=== PATIENT | male | born 1965 | race Caucasian/White ===

== ENCOUNTER 2017-08-21 18:45 | Emergency (ER) | payer BC, OTHER ==
[2017-08-21] MEDS ORDERED: Sodium Chloride 0.9% 10 ML Syringe FLUSH PRN ×2 (18:46→18:48)
[2017-08-21] MEDS ORDERED: Sodium Chloride 0.9% 2.5 ML Syringe FLUSH PRN ×2 (18:46→18:48)
[2017-08-21] MEDS ORDERED: fentaNYL 100 MCG/2 ML SDV IVPUSH ONE (18:50)
[2017-08-21 19:05] VITALS: BP 169/115
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
== END 2017-08-21 19:11 ==
LOC: MW.ED 18:45
DX: S20.211A Contusion of right front wall of thorax, initial encounter (principal); S39.91XA Unspecified injury of abdomen, initial encounter; S39.93XA Unspecified injury of pelvis, initial encounter; V69.9XXA Occupant (driver) (passenger) of heavy transport vehicle injured in unspecified traffic accident, initial encounter
CPT/HCPCS: 36415; 85025; 96374; 99283; 99285-25

== ENCOUNTER 2019-04-25 23:40 | Emergency (ER) | payer SELFPAY ==
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
[2019-04-26 00:44] LABS: BLOOD UREA NITROGEN,BUN 13 mg/dL (7.0-18.0); CARBON DIOXIDE,CO2 25.1 mmol/L (21.0-32.0); CHLORIDE,CL 110 mmol/L (98-107); GLUCOSE RANDOM 116 mg/dL (74-106); POTASSIUM,K 3.9 mmol/L (3.5-5.1); SODIUM,NA 146 mmol/L (136-148)
--- NOTE | 2019-04-26 00:46 | CR ---
Indication: Pain following attempted hanging Technique: Two views of the left neck Comparison: None Findings: There is normal thickness of the prevertebral soft tissues. There is no normal appearance of the vallecula. The hyoid bone appears intact. The visualized airway is patent. Impression: Unremarkable neck radiographs. Dictated by Michael Stinson MD @ Apr 26 2019 12:45AM Signed by Dr. Michael Stinson @ Apr 26 2019 12:45AM
--- NOTE | 2019-04-26 00:46 | CR ---
Indication: Pain following attempted hanging Technique: Three views of the cervical spine Comparison: None Findings: There is normal height and alignment of the cervical vertebral bodies. The dense processes intact. No fracture is demonstrated. There is normal thickness of the prevertebral soft tissues. Degenerative disc disease with moderate height loss and marginal osteophytosis is present at C3-4 through C6-7. Impression: 1. No acute abnormality of the cervical spine. 2. Multilevel degenerative disc disease. Dictated by Michael Stinson MD @ Apr 26 2019 12:40AM Signed by Dr. Michael Stinson @ Apr 26 2019 12:43AM
[2019-04-26 01:05] VITALS: BP 140/95; PULSE 104
[2019-04-26] MEDS ORDERED: LORazepam 2 MG/ML SDV IM ONE (01:16)
[2019-04-26] MEDS ORDERED: Alum Hydrox/Mag Hydrox/Simeth 15 ML, Metoclopramide 5 MG, Lidocaine 2% 5 ML PO ONE ×3 (01:24)
== END 2019-04-26 01:30 ==
LOC: MW.ED 23:40
DX: T71.162A Asphyxiation due to hanging, intentional self-harm, initial encounter (principal); F32.9 Major depressive disorder, single episode, unspecified; F43.10 Post-traumatic stress disorder, unspecified; Z79.899 Other long term (current) drug therapy
CPT/HCPCS: 36415; 70360; 72040; 80053; 80305; 80320; 81001; 83735; 84443; 85025; 93005; 96372; 99285; A9270; J2060; G0480